=== PATIENT | female | born 1970 | race Caucasian/White ===

== ENCOUNTER 2017-03-03 02:40 | Emergency (ER) | payer OTHER ==
[2017-03-03 02:47] VITALS: BP 188/89; PULSE 90; RESP 20; TEMP 97.5
[2017-03-03] MEDS ORDERED: ORPHENADRINE 30 MG/ML 2 ML VIAL IM STA (03:00)
[2017-03-03] MEDS ORDERED: KETOROLAC 60 MG/2 ML VIAL IM STA (03:00)
--- NOTE | 2017-03-03 03:14 | ED ---
Upper Extremity HPI - General Chief Complaint: Extremity Injury, Upper Stated Complaint: shoulder/neck pain Time Seen by Provider: 03/03/17 02:49 Source: patient Mode of arrival: ambulatory Limitations: no limitations - Related Data Home Medications Medication Instructions Recorded Confirmed Acetaminophen with Codeine 1 tab PO Q6H 04/24/15 04/24/15 [Acetaminophen with Codeine #3] Escitalopram [Lexapro] 10 mg PO DAILY 04/24/15 04/24/15 Montelukast [Singulair] 10 mg PO DAILY 04/24/15 04/24/15 Omeprazole [PriLOSEC] 20 mg PO AC-BRKFST 04/24/15 04/24/15 Rizatriptan Odt [Maxalt SPACE BUYER] 10 mg PO BID PRN 04/24/15 04/24/15 clonazePAM [Clonazepam] 0.5 mg PO BID 04/24/15 04/24/15 traZODone HCL [Desyrel] 50 mg PO HS 04/24/15 04/24/15 Previous Rx's Medication Instructions Recorded Hydrocodone/Acetaminophen [[place] 1 each PO Q6HR PRN #12 tab 03/03/17 5-325] Allergies Allergy/AdvReac Type Severity Reaction Status Date / Time Digitalis Glycosides Allergy Unknown Verified 03/03/17 02:47 erythromycin base Allergy Unknown Verified 03/03/17 02:47 Sulfa (Sulfonamide Allergy Unknown Verified 03/03/17 02:47 Antibiotics) Review of Systems ROS Statement: Those systems with pertinent positive or pertinent negative responses have been documented in the HPI. ROS Other: All systems not noted in ROS Statement are negative. Past Medical History Past Medical History: Asthma, Cancer, Diabetes Mellitus, GERD/Reflux, Renal Disease Additional Past Medical History / Comment(s): uterine cancer, spontaneous ileus 1998 History of Any Multi-Drug Resistant Organisms: None Reported Past Surgical History: Ablation, Cholecystectomy Additional Past Surgical History / Comment(s): ablation of overgrown endometrial tissue in abdominal cavity, cyst removed from left falopian tube, gastric sleeve, lasix. Broke 3 ribs on right side Additional Past Anesthesia/Blood Transfusion Reaction / Comment(s): issues with blood pressure dropping w. anesthesia, difficult to wake post op Past Psychological History: Anxiety, Depression Smoking Status: Never smoker Past Alcohol Use History: None Reported Past Drug Use History: None Reported - Past Family History Mother Family Medical History: Hypertension Additional Family Medical History / Comment(s): thoracotomy age 18 Father Family Medical History: Diabetes Mellitus, Osteoarthritis (OA) Additional Family Medical History / Comment(s): heart attack 2002, gout Sister(s) Family Medical History: Renal Disease Additional Family Medical History / Comment(s): 40 kidney stones in 2 yrs, mass on adrenal gland, blind in left eye General Exam Limitations: no limitations Course Vital Signs 03/03/17 02:43 Temperature 97.5 F L Pulse Rate 90 Respiratory 20 Rate Blood Pressure 188/89 O2 Sat by Pulse 99 Oximetry Disposition Clinical Impression: Trapezius strain Disposition: HOME SELF-CARE Condition: Good Instructions: Muscle Strain (ED) Prescriptions: Hydrocodone/Acetaminophen [[place] 5-325] 1 each PO Q6HR PRN #12 tab PRN Reason: Pain Referrals: Jun Alexander III, MD [Primary Care Provider] - 1-2 days
== END 2017-03-03 03:26 | disposition home or self-care (01) ==
LOC: EC 02:40
DX: S46.819A Strain of other muscles, fascia and tendons at shoulder and upper arm level, unspecified arm, initial encounter (principal); J45.909 Unspecified asthma, uncomplicated; K21.9 Gastro-esophageal reflux disease without esophagitis; C55 Malignant neoplasm of uterus, part unspecified; F32.9 Major depressive disorder, single episode, unspecified; F41.9 Anxiety disorder, unspecified; Z79.891 Long term (current) use of opiate analgesic; Z79.899 Other long term (current) drug therapy; Z88.1 Allergy status to other antibiotic agents; Z88.2 Allergy status to sulfonamides; Z88.8 Allergy status to other drugs, medicaments and biological substances
CPT/HCPCS: 99283; 96372 ×2; J2360; J1885

== ENCOUNTER 2019-07-01 23:35 | Emergency (ER) | payer BC, OTHER ==
[2019-07-02] MEDS ORDERED: PENICILLIN VK 500MG STARTER 4 TAB BTL PO STA (00:28)
--- NOTE | 2019-07-02 00:28 | ED ---
General Adult HPI - General Chief complaint: Dental/Oral Stated complaint: Dental pain Time Seen by Provider: 07/01/19 23:52 Source: patient, RN notes reviewed, old records reviewed Mode of arrival: ambulatory - History of Present Illness Initial comments: 49-year-old female patient presents to ED for chief complaint of dental pain. Patient reports that she has a demonstrated around her right upper incisor region. Patient was that she has been following up with dentist and is scheduled to have the tooth removed and implant placed. Patient reports that she started having discomfort on pulseless 25. Patient port site in the last 6 hours the pain is getting worse and she is not having some swelling in the region. Denies any other complaints at this time. Patient is a diabetic, however denies any other reason to have a compromised immune system. Systemic: Pt denies fatigue, fever/chills, rash. Pt denies weakness, night sweats, weight loss. Neuro: Pt denies headache, visual disturbances, syncope or pre-syncope. HEENT: Pt denies ocular discharge or irritation, otalgia, rhinorrhea, pharyngitis or notable lymphadenopathy. Cardiopulmonary: Pt denies chest pain, SOB, heart palpitations, dyspnea on exertion. Abdominal/GI: Pt denies abdominal pain, n/v/d. : Pt denies dysuria, burning w/ urination, frequency/urgency. Denies new onset urinary or bowel incontinence. MSK: Pt denies myalgia, loss of strength or function in extremities. Neuro: Pt denies new onset weakness, paresthesias. - Related Data Home Medications Medication Instructions Recorded Confirmed Acetaminophen with Codeine 1 tab PO Q6H 04/24/15 04/24/15 [Acetaminophen with Codeine #3] Escitalopram [Lexapro] 10 mg PO DAILY 04/24/15 04/24/15 Montelukast [Singulair] 10 mg PO DAILY 04/24/15 04/24/15 Omeprazole [PriLOSEC] 20 mg PO AC-BRKFST 04/24/15 04/24/15 Rizatriptan Odt [Maxalt BALANCE SCREWHEAD POLISHER] 10 mg PO BID PRN 04/24/15 04/24/15 clonazePAM [Clonazepam] 0.5 mg PO BID 04/24/15 04/24/15 traZODone HCL [Desyrel] 50 mg PO HS 04/24/15 04/24/15 Previous Rx's Medication Instructions Recorded Hydrocodone/Acetaminophen [[place] 1 each PO Q6HR PRN #12 tab 03/03/17 5-325] Penicillin V Potassium [Pen Vee K] 500 mg PO QID 7 Days #28 tablet 07/02/19 Allergies Allergy/AdvReac Type Severity Reaction Status Date / Time Digitalis Glycosides Allergy Unknown Verified 03/03/17 02:47 erythromycin base Allergy Unknown Verified 03/03/17 02:47 Sulfa (Sulfonamide Allergy Unknown Verified 03/03/17 02:47 Antibiotics) Review of Systems ROS Statement: Those systems with pertinent positive or pertinent negative responses have been documented in the HPI. ROS Other: All systems not noted in ROS Statement are negative. Past Medical History Past Medical History: Asthma, Cancer, Diabetes Mellitus, GERD/Reflux, Renal Disease Additional Past Medical History / Comment(s): uterine cancer, spontaneous ileus 1998 History of Any Multi-Drug Resistant Organisms: None Reported Past Surgical History: Ablation, Cholecystectomy Additional Past Surgical History / Comment(s): ablation of overgrown endometrial tissue in abdominal cavity, cyst removed from left falopian tube, gastric sleeve, lasix. Broke 3 ribs on right side Additional Past Anesthesia/Blood Transfusion Reaction / Comment(s): issues with blood pressure dropping w. anesthesia, difficult to wake post op Past Psychological History: Anxiety, Depression Smoking Status: Never smoker Past Alcohol Use History: None Reported Past Drug Use History: None Reported - Past Family History Mother Family Medical History: Hypertension Additional Family Medical History / Comment(s): thoracotomy age 18 Father Family Medical History: Diabetes Mellitus, Osteoarthritis (OA) Additional Family Medical History / Comment(s): heart attack 2002, gout Sister(s) Family Medical History: Renal Disease Additional Family Medical History / Comment(s): 40 kidney stones in 2 yrs, mass on adrenal gland, blind in left eye General Exam - General Exam Comments Initial Comments: Constitutional: NAD, AOX3, Pt has pleasant affect. HEENT: NC/AT, trachea midline, neck supple, no lymphadenopathy. Posterior pharynx non erythematous, without exudates. External ears appear normal, without discharge. Mucous membranes moist. Eyes PERRLA, EOM intact. There is no scleral icterus. No pallor noted. Approximately 1.5 cm dental abscess noted in right upper incisor, incision and drainage displayed purulent drainage. Cardiopulmonary: RRR, no murmurs, rubs or gallops, no JVD noted. Lungs CTAB in anterior and posterior paige. No peripheral edema. Abdominal exam: Abdomen soft and non-distended. Abdomen non-tender to palpation in all 4 quadrants. Bowel sounds active in LLQ. No hepatosplenomegaly. No ecchymosis Neuro: CN II-XII grossly intact. No nuchal rigidity. No raccon eyes, no vargas sign, no hemotympanum. No cervical spinal tenderness. MSK: No posterior calf tenderness bilaterally, homans sign negative bilaterally. Posterior tibialis and radial pulse +2 bilaterally. Sensation intact in upper and lower extremities. Full active ROM in upper and lower extremities, 5/5 stregnth. Course Vital Signs 07/01/19 23:38 Temperature 98.2 F Pulse Rate 84 Respiratory 16 Rate Blood Pressure 176/100 O2 Sat by Pulse 99 Oximetry Procedures - Incision & Drainage Consent Obtained: verbal consent Indication: dental abscess Site: oral (R upper incisior ) Size (cm): 1 (1.5) Needle Aspiration Performed?: Yes I&D Drainage Obtained: Pus Culture Obtained?: No Patient Tolerated Procedure: well Medical Decision Making - Medical Decision Making 49-year-old female patient presents to ED for chief complaint of dental pain. Patient reports that she has a demonstrated around her right upper incisor region. Patient was that she has been following up with dentist and is scheduled to have the tooth removed and implant placed. Patient reports that she started having discomfort on pulseless 25. Patient port site in the last 6 hours the pain is getting worse and she is not having some swelling in the region. Denies any other complaints at this time. Patient is a diabetic, however denies any other reason to have a compromised immune system. Pt VS displayed mild hypertension, afebrile. Physical exam displayed: Approximately 1.5 cm dental abscess noted in right upper incisor, incision and drainage displayed purulent drainage. Pt feeling much improved. Will discharge with Penicillin VK. Patient will follow-up with dentist back in her hometown [place]. Return to ER in the meantime condition worsens in any way. Case discussed with Dr. Kay. Disposition Clinical Impression: Dental abscess Disposition: HOME SELF-CARE Condition: Stable Instructions (If sedation given, give patient instructions): Abscess Incision and Drainage (ED), Dental Abscess (ED) Additional Instructions: Take antibiotics as directed. Follow-up with dentist tomorrow. Return to ER if condition worsens in anyway. Prescriptions: Penicillin V Potassium [Pen Vee K] 500 mg PO QID 7 Days #28 tablet Is patient prescribed a controlled substance at d/c from ED?: No Referrals: None,Stated [Primary Care Provider] - 1-2 days
[2019-07-02] MEDS ORDERED: ACET/COD 300 MG/30 MG STARTER PACK 6 TAB BTL PO STA (00:35)
[2019-07-02 00:58] VITALS: BP 152/88; PULSE 82; RESP 17; TEMP 97.6
== END 2019-07-02 00:58 | disposition home or self-care (01) ==
LOC: EC 23:35
DX: K04.7 Periapical abscess without sinus (principal); E11.9 Type 2 diabetes mellitus without complications; J45.909 Unspecified asthma, uncomplicated; F41.9 Anxiety disorder, unspecified; F32.9 Major depressive disorder, single episode, unspecified; Z79.899 Other long term (current) drug therapy; Z88.1 Allergy status to other antibiotic agents; Z88.2 Allergy status to sulfonamides; Z88.8 Allergy status to other drugs, medicaments and biological substances; Z85.42 Personal history of malignant neoplasm of other parts of uterus
CPT/HCPCS: 41800; 99283

== ENCOUNTER 2019-07-04 02:19 | Emergency (ER) | payer BC ==
[2019-07-04 02:25] VITALS: BP 157/91; PULSE 87; RESP 16; TEMP 98.8
--- NOTE | 2019-07-04 03:44 | ED ---
General Adult HPI - General Chief complaint: Dental/Oral Stated complaint: Recheck Dental Pain Time Seen by Provider: 07/04/19 02:37 Source: patient, RN notes reviewed, old records reviewed Mode of arrival: ambulatory Limitations: no limitations - History of Present Illness Initial comments: 49-year-old female patient has a history significant for recent evaluation due to dental abscess procedure chief complaint dental abscess. Patient reports that it filled with pus again. She has poor that she was able to drain a by applying manual pressure, however reports that she does believe that appears to be inflamed again. Denies any other complaints. Systemic: Pt denies fatigue, fever/chills, rash. Pt denies weakness, night sweats, weight loss. Neuro: Pt denies headache, visual disturbances, syncope or pre-syncope. HEENT: Pt denies ocular discharge or irritation, otalgia, rhinorrhea, pharyngitis or notable lymphadenopathy. Cardiopulmonary: Pt denies chest pain, SOB, heart palpitations, dyspnea on exertion. Abdominal/GI: Pt denies abdominal pain, n/v/d. : Pt denies dysuria, burning w/ urination, frequency/urgency. Denies new onset urinary or bowel incontinence. MSK: Pt denies myalgia, loss of strength or function in extremities. Neuro: Pt denies new onset weakness, paresthesias. - Related Data Home Medications Medication Instructions Recorded Confirmed Acetaminophen with Codeine 1 tab PO Q6H 04/24/15 04/24/15 [Acetaminophen with Codeine #3] Escitalopram [Lexapro] 10 mg PO DAILY 04/24/15 04/24/15 Montelukast [Singulair] 10 mg PO DAILY 04/24/15 04/24/15 Omeprazole [PriLOSEC] 20 mg PO AC-BRKFST 04/24/15 04/24/15 Rizatriptan Odt [Maxalt WAREHOUSING TECHNICIAN] 10 mg PO BID PRN 04/24/15 04/24/15 clonazePAM [Clonazepam] 0.5 mg PO BID 04/24/15 04/24/15 traZODone HCL [Desyrel] 50 mg PO HS 04/24/15 04/24/15 Previous Rx's Medication Instructions Recorded Hydrocodone/Acetaminophen [[place] 1 each PO Q6HR PRN #12 tab 03/03/17 5-325] Penicillin V Potassium [Pen Vee K] 500 mg PO QID 7 Days #28 tablet 07/02/19 Amoxicillin/Potassium Clav 1 each PO Q12HR 7 Days #14 tab 07/04/19 [Augmentin 875-125 Tablet] Allergies Allergy/AdvReac Type Severity Reaction Status Date / Time Digitalis Glycosides Allergy Unknown Verified 03/03/17 02:47 erythromycin base Allergy Unknown Verified 03/03/17 02:47 morphine Allergy heightens Verified 07/04/19 02:24 pain Sulfa (Sulfonamide Allergy Unknown Verified 03/03/17 02:47 Antibiotics) Review of Systems ROS Statement: Those systems with pertinent positive or pertinent negative responses have been documented in the HPI. ROS Other: All systems not noted in ROS Statement are negative. Past Medical History Past Medical History: Asthma, Cancer, Diabetes Mellitus, GERD/Reflux, Renal Disease Additional Past Medical History / Comment(s): uterine cancer, spontaneous ileus 1998 History of Any Multi-Drug Resistant Organisms: None Reported Past Surgical History: Ablation, Cholecystectomy Additional Past Surgical History / Comment(s): ablation of overgrown endometrial tissue in abdominal cavity, cyst removed from left falopian tube, gastric sleeve, lasix. Broke 3 ribs on right side Additional Past Anesthesia/Blood Transfusion Reaction / Comment(s): issues with blood pressure dropping w. anesthesia, difficult to wake post op Past Psychological History: Anxiety, Depression Smoking Status: Never smoker Past Alcohol Use History: None Reported Past Drug Use History: None Reported - Past Family History Mother Family Medical History: Hypertension Additional Family Medical History / Comment(s): thoracotomy age 18 Father Family Medical History: Diabetes Mellitus, Osteoarthritis (OA) Additional Family Medical History / Comment(s): heart attack 2002, gout Sister(s) Family Medical History: Renal Disease Additional Family Medical History / Comment(s): 40 kidney stones in 2 yrs, mass on adrenal gland, blind in left eye General Exam - General Exam Comments Initial Comments: Constitutional: NAD, AOX3, Pt has pleasant affect. HEENT: NC/AT, trachea midline, neck supple, no lymphadenopathy. Posterior pharynx non erythematous, without exudates. External ears appear normal, without discharge. Mucous membranes moist. Eyes PERRLA, EOM intact. There is no scleral icterus. No pallor noted. Dental abscess right upper incisor region, a pressure was able to drain purulent drainage, I&D was performed with 11 scalpel. Cardiopulmonary: RRR, no murmurs, rubs or gallops, no JVD noted. Lungs CTAB in anterior and posterior paige. No peripheral edema. Abdominal exam: Abdomen soft and non-distended. Abdomen non-tender to palpation in all 4 quadrants. Bowel sounds active in LLQ. No hepatosplenomegaly. No ecchymosis Neuro: CN II-XII grossly intact. No nuchal rigidity. No raccon eyes, no vargas sign, no hemotympanum. No cervical spinal tenderness. MSK: No posterior calf tenderness bilaterally, homans sign negative bilaterally. Posterior tibialis and radial pulse +2 bilaterally. Sensation intact in upper and lower extremities. Full active ROM in upper and lower extremities, 5/5 stregnth. Limitations: no limitations Course Vital Signs 07/04/19 02:19 Temperature 98.8 F Pulse Rate 87 Respiratory 16 Rate Blood Pressure 157/91 O2 Sat by Pulse 98 Oximetry Procedures - Incision & Drainage Consent Obtained: verbal consent Indication: dental abscess R upper incisor Site: oral Size (cm): 1 Scalpel Used: #11 I&D Drainage Obtained: Pus Patient Tolerated Procedure: well Medical Decision Making - Medical Decision Making 49-year-old female patient presented with chief complaint dental abscess. Patient was seen 2 days ago for the same problem and I&D was performed. Patient vital signs are stable, afebrile. Physical exam displayed a dental abscess to be recurrent. I was able to express purulent fluid which is draining actively with pressure. Patient requests using an 11 scalpel I did perform an additional I&D with a 11 blade scalpel, abscess was drained without difficulty. Patient was prescribed Augmentin will discontinue penicillin VK. Follow up with primary care provider and dentist and return to ER if condition worsens. Case discussed with Dr. Kay. Disposition Clinical Impression: Dental abscess Disposition: HOME SELF-CARE Condition: Stable Instructions (If sedation given, give patient instructions): Dental Abscess (ED) Additional Instructions: Take antibiotics as instructed. Follow-up with dentist tomorrow. Return to ER if condition worsens. Prescriptions: Amoxicillin/Potassium Clav [Augmentin 875-125 Tablet] 1 each PO Q12HR 7 Days #14 tab Is patient prescribed a controlled substance at d/c from ED?: No Referrals: None,Stated [Primary Care Provider] - 1-2 days
== END 2019-07-04 04:02 | disposition home or self-care (01) ==
LOC: EC 02:19
DX: K04.7 Periapical abscess without sinus (principal); J45.909 Unspecified asthma, uncomplicated; K21.9 Gastro-esophageal reflux disease without esophagitis; F32.9 Major depressive disorder, single episode, unspecified; F41.9 Anxiety disorder, unspecified; Z88.1 Allergy status to other antibiotic agents; Z88.2 Allergy status to sulfonamides; Z88.5 Allergy status to narcotic agent; Z88.8 Allergy status to other drugs, medicaments and biological substances; Z79.891 Long term (current) use of opiate analgesic; Z79.899 Other long term (current) drug therapy; Z85.42 Personal history of malignant neoplasm of other parts of uterus
CPT/HCPCS: 41800; 99283

== ENCOUNTER 2021-07-09 16:14 | Emergency (ER) | payer BC ==
[2021-07-09] MEDS ORDERED: SODIUM CHLORIDE 0.9% 1,000 ML IV ONE (18:18)
[2021-07-09] MEDS ORDERED: ACETAMINOPHEN TAB 500 MG TAB PO STA (18:18)
[2021-07-09] MEDS ORDERED: ONDANSETRON 4 MG/2 ML VIAL IVP STA (18:18)
[2021-07-09] MEDS ORDERED: IBUPROFEN IV 800 MG in SODIUM CHLORIDE 0.9% 250 ML IV ONE (18:30)
[2021-07-09] MEDS ORDERED: BAMLANIVIMAB (EUA) 700 MG, ETESEVIMAB (EUA) 1,400 MG in SODIUM CHLORIDE 0.9% 100 ML IVPB ONE (19:00)
--- NOTE | 2021-07-09 19:13 | ED ---
General Adult HPI - General Chief complaint: Fever Stated complaint: Congestion,headache,cough Time Seen by Provider: 07/09/21 17:44 Source: patient Mode of arrival: ambulatory Limitations: no limitations - History of Present Illness Initial comments: 51-year-old female patient presents to the emergency department today for evaluation of back pain, body aches, sore throat, and cough. States she did have some shortness of breath earlier today. Reports some nausea without vomiting. Did have one episode of diarrhea. She has been vaccinated for COVID-1 9. She has recently traveled here from [place]. She denies taking any medication for her symptoms. She has multiple chronic medical conditions including hypertension, diabetes, and asthma. Patient denies any recent rash, chest pain, abdominal pain, constipation, numbness, tingling, dizziness, weakness, hematuria, dysuria, urinary urgency, urinary frequency, headache, visual changes, or any other complaints. - Related Data Home Medications Medication Instructions Recorded Confirmed Imiquimod [Aldara] 1 packet TOPICAL Q48H 07/09/21 07/09/21 Omeprazole 20 mg PO DAILY 07/09/21 07/09/21 Previous Rx's Medication Instructions Recorded Budesonide [Pulmicort Flexhaler] 2 puff INHALATION BID #1 each 07/09/21 Dexamethasone 6 mg PO DAILY #10 tablet 07/09/21 Allergies Allergy/AdvReac Type Severity Reaction Status Date / Time Digitalis Glycosides Allergy Unknown Verified 07/09/21 19:52 erythromycin base Allergy Unknown Verified 07/09/21 19:52 hydrocodone Allergy Itching Verified 07/09/21 19:52 morphine Allergy heightens Verified 07/09/21 19:52 pain Sulfa (Sulfonamide Allergy Unknown Verified 07/09/21 19:52 Antibiotics) Review of Systems ROS Statement: Those systems with pertinent positive or pertinent negative responses have been documented in the HPI. ROS Other: All systems not noted in ROS Statement are negative. Past Medical History Past Medical History: Asthma, Cancer, Diabetes Mellitus, GERD/Reflux, Renal Disease Additional Past Medical History / Comment(s): uterine cancer, spontaneous ileus 1998 History of Any Multi-Drug Resistant Organisms: None Reported Past Surgical History: Ablation, Cholecystectomy Additional Past Surgical History / Comment(s): ablation of overgrown endometrial tissue in abdominal cavity, cyst removed from left falopian tube, gastric sleeve, lasix. Broke 3 ribs on right side Additional Past Anesthesia/Blood Transfusion Reaction / Comment(s): issues with blood pressure dropping w. anesthesia, difficult to wake post op Past Psychological History: Anxiety, Depression Smoking Status: Vaper Past Alcohol Use History: None Reported Past Drug Use History: None Reported - Past Family History Mother Family Medical History: Hypertension Additional Family Medical History / Comment(s): thoracotomy age 18 Father Family Medical History: Diabetes Mellitus, Osteoarthritis (OA) Additional Family Medical History / Comment(s): heart attack 2003, gout Sister(s) Family Medical History: Renal Disease Additional Family Medical History / Comment(s): 40 kidney stones in 2 yrs, mass on adrenal gland, blind in left eye General Exam Limitations: no limitations General appearance: alert, in no apparent distress, other (This is a well-de veloped, well-nourished adult female in no acute distress.) ENT exam: Present: normal exam, normal oropharynx, mucous membranes moist Respiratory exam: Present: normal lung sounds bilaterally. Absent: respiratory distress, wheezes, rales, rhonchi, stridor Cardiovascular Exam: Present: normal rhythm, tachycardia, normal heart sounds. Absent: systolic murmur, diastolic murmur, rubs, gallop, clicks GI/Abdominal exam: Present: soft, normal bowel sounds. Absent: distended, tenderness, guarding, rebound, rigid Neurological exam: Present: alert, oriented X3, CN II-XII intact Psychiatric exam: Present: normal affect, normal mood Skin exam: Present: warm, dry, intact, normal color. Absent: rash Course Vital Signs 07/09/21 07/09/21 07/09/21 17:32 18:24 18:42 Temperature 101 F H 101.3 F H Pulse Rate 110 H 112 H Respiratory 20 22 16 Rate Blood Pressure 142/76 146/86 O2 Sat by Pulse 99 95 Oximetry 07/09/21 20:56 Temperature 99.8 F H Pulse Rate 99 Respiratory 20 Rate Blood Pressure 120/68 O2 Sat by Pulse 95 Oximetry Medical Decision Making - Medical Decision Making 51-year-old female patient presents to the emergency department today for evaluation of upper respiratory symptoms and fever. She is also reporting increased back pain. She did test positive for COVID-19. She was given pain medication, IV fluids, nausea medication. She did receive monoclonal antibody infusion. Upon reevaluation she does report some improvement of symptoms. She'll be discharged follow-up with the primary care physician for recheck in 1- 2 days. Return parameters were discussed in detail. She verbalizes understanding and agrees with this plan. My attending is Dr. Ann. - Lab Data Lab Results 07/09/21 Range/Units 17:41 Coronavirus (PCR) Detected A (Not Detectd) Disposition Clinical Impression: COVID-19 Disposition: HOME SELF-CARE Condition: Good Instructions (If sedation given, give patient instructions): Coronavirus Disease 2019 (COVID-19) Additional Instructions: Tips to help you feel better: -Maintain adequate fluid intake - especially water. -Rest, you are healing your body will require extra sleep. -Eat even if you do not feel like it - broth, jello, toast are fine if you cannot eat full meals. -Take tylenol and motrin alternating (if you have no allergies or have not been instructed to avoid these medications) to help with body aches and fevers. -Obtain over the counter vitamin C, zinc, and vitamin D3. -Take medications as prescribed. Follow-up with your primary care physician for recheck in 1-2 days. Return for any new, worsening, or concerning symptoms. Prescriptions: Dexamethasone 6 mg PO DAILY #10 tablet Budesonide [Pulmicort Flexhaler] 2 puff INHALATION BID #1 each Is patient prescribed a controlled substance at d/c from ED?: No Referrals: None,Stated [Primary Care Provider] - 1-2 days Time of Disposition: 20:24
[2021-07-09] MEDS ORDERED: HYDROmorphone 0.5 MG/0.5 ML SYRINGE IVP STA (19:19)
[2021-07-09] MEDS ORDERED: SODIUM CHLORIDE 0.9% 50 ML IVPB ONE (19:30)
[2021-07-09 20:57] VITALS: BP 120/68; PULSE 99; RESP 20; TEMP 99.8
== END 2021-07-09 20:57 | disposition home or self-care (01) ==
LOC: EC 16:14
DX: U07.1 COVID-19 (principal); E11.9 Type 2 diabetes mellitus without complications; I10 Essential (primary) hypertension; J45.909 Unspecified asthma, uncomplicated; K21.9 Gastro-esophageal reflux disease without esophagitis; F32.A Depression, unspecified; F41.9 Anxiety disorder, unspecified; F17.290 Nicotine dependence, other tobacco product, uncomplicated; Z79.899 Other long term (current) drug therapy
CPT/HCPCS: 87635; 99285; 96365; 96375 ×2; J2405; J1741; J1170; J3490